=== PATIENT | male | born 1950 | race Caucasian/White ===

== ENCOUNTER → 2017-01-21 | Outpatient (CLI) | payer BC ==
[~2017-01-21] MED LIST: ACET-1222 PO; ALLO300T2 PO; ASPI81TA28 PO; ATOR-24 PO; CLOB-77 TOP; COEN30CA6 PO; CRS/10 PO; DXM/4 PO; FENO145T26 PO; GLIM4TAB2 PO; LANS30CA12 PO; LEVE250T PO; LISI10TA PO; METF1000 PO; ONDA8TAB6 PO; TEMO1CAP11 PO; TEMO1CAP4 PO; TEMO1CAP5 PO; TRAM-10 PO; WARF7.5T4 PO
[2017-01-21 11:42] LABS: INR 1.8 (0.9-1.1); PROTHROMBIN TIME (PATIENT) 19.7 SECONDS (9.0-12.0)
== END | disposition home or self-care (01) ==
LOC: C.LAB 09:57
PROVIDERS: ATTEND Family Medicine
DX: Z95.2 Presence of prosthetic heart valve (principal); Z79.01 Long term (current) use of anticoagulants; Z51.81 Encounter for therapeutic drug level monitoring

== ENCOUNTER → 2017-04-21 | Outpatient (CLI) | payer BC ==
[2017-04-21 14:19] VITALS: BP 118/73; PULSE 65; TEMP 37; O2SAT 94
--- NOTE | 2017-04-21 16:25 | Radiation Oncology Follow-Up ---
Radiation Oncology Follow-Up Date of Visit Apr 21, 2017. (Chiara Rayo PA-C) Reason For Visit One-month follow-up (Chiara Rayo PA-C) Radiation Completion Date 03/04/17 (Chiara Rayo PA-C) Diagnosis (1) Glioblastoma multiforme of brain Status: Acute Onset Date: 12/21/2016 Location: left temporal lobe Stage: IV Permanent Comment: Development of seizures and headache Respiratory failure requiring cricoidotomy Brain MRI revealing a lesion in the left temporal area Status post stereotactic needle biopsy 12/21/2016 revealing glioblastoma WHO grade 4, IGH 1(R123H) -wildtype Status post completion of combined radiation and chemotherapy 03/04/2017 received 6000 cGy Chemotherapy comprised of Temodar. Last Edited By: Chiara Rayo on March 15, 2017 14:12 (Chiara Rayo PA-C) History of Present Illness Mr. Santana is a 66-year-old Derian from [facility] who recently presented with a partial complex seizure and was brought to the emergency room on 2016 and he did have a CT head without contrast on 12/12/2016 which did not show any evidence of intracranial disease. The patient subsequently presented again with seizures and did have an MRI of the brain on December 2016 which revealed a small ring-enhancing lesion measuring 10 mm in the left temporal lobe. The patient was transferred to [facility]. The patient ultimately had a stereotactic biopsy on 12/21/2016 of the left temporal lesion which revealed glioblastoma, WHO grade 4 that was IDH-1 wildtype. The patient was seen in consultation by neuro-oncology, Dr. Burgess, and radiation oncology, Dr. Roper, and the recommendation was for definitive chemotherapy and radiation therapy with consideration for tumor treating michel. We are now being referred the patient for consideration of radiation therapy closer to his home. Status post completion of combined radiation and chemotherapy 03/04/2017. He received 6000 cGy. Chemotherapy comprised of Temodar. (Chiara Rayo PA-C) Interim History Over this past month he denies any problems with headaches or dizziness. He's had no change in his vision. He has had problems with feeling of hot and cold. Because of the feeling of warmth and associated fever he was seen by his primary care physician. Laboratory studies were obtained. He also had a chest x-ray. He was seen by the neuro-oncologist. Additional laboratory studies were done. He had been having episodes of an undetermined smell. Because of this his seizure medication was increased. His appetite is been good. His dexamethasone was increased due to the hot/cold flushes. This had been up to 2 mg this past Wednesday. He is back to tapering the medication. He is been given specific instructions for a slow taper. He is on 1 mg a day for the next week. This will then be 1/2 mg a day for one week. This is then decreased to one half a milligram every other day for a week. His stated that he'll have completed the taper by May 08. He has now started his first cycle of Temodar. The dose is 300 mg. He'll be taking this 5 days out of the month. He saw the neuro-oncologist this past weekend had an MRI. This read the diffusely infiltrative mass known glioblastoma and the left temporal lobe and posterior thalamus is stable compared to 12/16/2016. (Chiara Rayo PA-C) Allergies Coded Allergies: No Known Allergies (Unverified , 10/02/13) Home Medications Scheduled Allopurinol (Zyloprim), 300 MG PO DAILY Aspirin (Aspirin Ec), 81 MG PO DAILY Atorvastatin (Lipitor), 1 TAB PO DAILY Coenzyme Q10 (Ubidecarenone) (Coq10), 1 CAP PO BID Dexamethasone (Decadron), 1 MG PO DAILY Fenofibrate (Tricor), 145 MG PO DAILY Glimepiride (Glimepiride), 1 TAB PO DAILY Lansoprazole (Prevacid), 30 MG PO BID Levetiracetam (Keppra), 1,000 MG PO BID Lisinopril (Prinivil), 5 MG PO DAILY Metformin Hcl (Glucophage), 1,000 MG PO BID Rosuvastatin Calcium (Crestor), 20 MG PO HS Temozolomide (Temodar), 300 MG PO 5XWK Warfarin Sod (Jantoven), 7.5 MG PO DAILY Scheduled PRN Acetaminophen (Acetaminophen Extra Stren), 1 TAB PO TID PRN for Pain Clobetasol Propionate (Temovate), 1 APPLN TOP BID PRN for UNDECIDED Ondansetron Hcl (Zofran), 8 MG PO Q8 PRN for Nausea Tramadol (Ultram), 50 MG PO Q6H PRN for Pain Review of Systems Gastrointestinal: Symptoms: WNL Oral: Symptoms: No Problems Respiratory: Symptoms: WNL Other Respiratory: Gets "cold fits" and when he gets them he will get SOB lasts less than a mi Urinary: Symptoms: WNL Skin: Symptoms: No Problems (Chiara Rayo PA-C) Physical Exam Vital Signs Date Time Temp Pulse Resp B/P (MAP) Pulse Ox O2 Delivery O2 Flow Rate FiO2 04/21/17 14:19 37.0 65 16 118/73 94 Fatigue: None General Appearance: no apparent distress, + pertinent finding (well-healed incision of the left temporal area) Eyes: normal inspection, PERRL, EOMI ENT: normal ENT inspection, hearing grossly normal, pharynx normal Neck: no adenopathy, thyroid normal Respiratory/Chest: lungs clear, no respiratory distress, no accessory muscle use Cardiovascular: regular rate, rhythm, no gallop, no murmur Extremities: no pedal edema 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/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 tested, no motor/sensory deficits, alert, normal mood/affect Skin: warm/dry (Chiara Rayo PA-C) Laboratory Studies Test 02/17/17 14:29 02/24/17 13:24 03/01/17 14:22 Sodium Level 138 mmol/L (136-145) 137 mmol/L (136-145) Potassium Level 5.4 mmol/L (3.5-5.1) 5.2 mmol/L (3.5-5.1) Chloride Level 102 mmol/L (98-107) 103 mmol/L (98-107) Carbon Dioxide Level 28 mmol/L (21-32) 27 mmol/L (21-32) Anion Gap 8.0 mmol/L (3-11) 7.0 mmol/L (3-11) Blood Urea Nitrogen 29 mg/dl (7-18) 26 mg/dl (7-18) Creatinine 1.40 mg/dl (0.60-1.40) 1.20 mg/dl (0.60-1.40) Est Creatinine Clear Calc Drug Dose 55.2 ml/min 64.4 ml/min Estimated GFR () 60.7 73.1 Estimated GFR (Non- 52.4 63.1 BUN/Creatinine Ratio 20.6 (10-20) 22.0 (10-20) Random Glucose 206 mg/dl (70-99) 194 mg/dl (70-99) Calcium Level 9.5 mg/dl (8.5-10.1) 9.3 mg/dl (8.5-10.1) Total Bilirubin 0.4 mg/dl (0.2-1) 0.4 mg/dl (0.2-1) Aspartate Amino Transferase (AST) 17 U/L (15-37) 16 U/L (15-37) Alanine Aminotransferase (ALT) 44 U/L (12-78) 41 U/L (12-78) Alkaline Phosphatase 48 U/L (45-117) 39 U/L (45-117) Total Protein 7.2 gm/dl (6.4-8.2) 7.0 gm/dl (6.4-8.2) Albumin 3.9 gm/dl (3.4-5.0) 3.9 gm/dl (3.4-5.0) Globulin 3.3 gm/dl (2.5-4.0) 3.1 gm/dl (2.5-4.0) Albumin/Globulin Ratio 1.2 (0.9-2) 1.3 (0.9-2) White Blood Count 6.63 K/uL (4.8-10.8) 5.84 K/uL (4.8-10.8) Red Blood Count 4.73 M/uL (4.7-6.1) 4.63 M/uL (4.7-6.1) Hemoglobin 15.2 g/dL (14.0-18.0) 15.0 g/dL (14.0-18.0) Hematocrit 43.5 % (42-52) 42.7 % (42-52) Mean Corpuscular Volume 92.0 fL (80-100) 92.2 fL (80-100) Mean Corpuscular Hemoglobin 32.1 pg (25-34) 32.4 pg (25-34) Mean Corpuscular Hemoglobin Concent 34.9 g/dl (32-36) 35.1 g/dl (32-36) Platelet Count 126 K/uL (130-400) 117 K/uL (130-400) Mean Platelet Volume 8.5 fL (7.4-10.4) 8.0 fL (7.4-10.4) Neutrophils (%) (Auto) 78.3 % 74.4 % Lymphocytes (%) (Auto) 8.0 % 8.7 % Monocytes (%) (Auto) 10.0 % 12.0 % Eosinophils (%) (Auto) 0.3 % 0.3 % Basophils (%) (Auto) 0.2 % 0.3 % Neutrophils # (Auto) 5.20 K/uL (1.4-6.5) 4.34 K/uL (1.4-6.5) Lymphocytes # (Auto) 0.53 K/uL (1.2-3.4) 0.51 K/uL (1.2-3.4) Monocytes # (Auto) 0.66 K/uL (0.11-0.59) 0.70 K/uL (0.11-0.59) Eosinophils # (Auto) 0.02 K/uL (0-0.5) 0.02 K/uL (0-0.5) Basophils # (Auto) 0.01 K/uL (0-0.2) 0.02 K/uL (0-0.2) RDW Standard Deviation 51.8 fL (36.4-46.3) 53.0 fL (36.4-46.3) RDW Coefficient of Variation 15.3 % (11.5-14.5) 15.7 % (11.5-14.5) Immature Granulocyte % (Auto) 3.2 % 4.3 % Immature Granulocyte # (Auto) 0.21 K/uL (0.00-0.02) 0.25 K/uL (0.00-0.02) Prothrombin Time 31.5 SECONDS (9.0-12.0) 30.7 SECONDS (9.0-12.0) Prothrombin Time INR 2.8 (0.9-1.1) 2.8 (0.9-1.1) (Chiara Rayo PA-C) Assessment & Plan Plan: Patient was seen and examined by Dr. Hilliard. He'll continue on the dexamethasone taper. He is continuing on the Temodar. His next appointment for recheck visit and MRI in her she has 06/18/2017. We will obtain a copy of the recently performed MRI for review. We asked the patient to return to our office in 6 months. He may call if he has been questions or concerns in the interim. (Chiara Rayo PA-C) I agree with note created by Chiara Rayo PA-C. I reviewed the patient's chart and information with her. I have examined and evaluated the patient. I reviewed relevant clinical information and answered the patient's and/or family' s questions. (Veeral. Hilliard MD) Total Time In Follow-Up I spent 20 minutes speaking to the patient and performing examination. I spent 15 minutes reviewing information in completing this note. (Chiara Rayo PA-C) I spent 15 minutes examining and counseling the patient. (Veeral. Hilliard MD) Copy To Tyrel Encarnacion M.D.; Amira Bravo M.D.; Marko Roper M.D.
== END | disposition home or self-care (01) ==
LOC: C.ONC 14:09
PROVIDERS: ATTEND Physician Assistant Medical
DX: Z08 Encounter for follow-up examination after completed treatment for malignant neoplasm (principal); Z92.3 Personal history of irradiation; Z85.841 Personal history of malignant neoplasm of brain

== ENCOUNTER → 2017-10-26 | Outpatient (CLI) | payer BC ==
[~2017-10-26] MED LIST changes: +APRE125C; +APRE80CA; +GLC/500 PO; +LAMO1TAB21 PO; +ONDA-170 PO; -ONDA8TAB6 PO; +PRLSR20 PO; -TEMO1CAP11 PO; -TEMO1CAP5 PO; +WARF5TAB7 PO; +[UNRECOGNIZED DRUG - OTHER] PO
[2017-10-26 13:19] VITALS: BP 106/66; PULSE 76; TEMP 36.8; O2SAT 94
--- NOTE | 2017-10-26 15:58 | Radiation Oncology Follow-Up ---
Radiation Oncology Follow-Up Date of Visit Oct 26, 2017. Reason For Visit 6 month follow-up Radiation Completion Date 03/04/17 Diagnosis (1) Glioblastoma multiforme of brain Status: Acute Onset Date: 12/21/2016 Location: left frontal lobe Stage: IV Permanent Comment: Development of seizures and headache Respiratory failure requiring cricoidotomy Brain MRI revealing a lesion in the left temporal area Status post stereotactic needle biopsy 12/21/2016 revealing glioblastoma WHO grade 4, IGH 1(R123H) -wildtype Status post completion of combined radiation and chemotherapy 03/04/2017 received 6000 cGy Chemotherapy comprised of Temodar. Status post left frontal lobectomy due to recurrence 09/03/2017 Ongoing chemotherapy with Gliostine every 6 weeks Last Edited By: Chiara Rayo on Oct 26, 2017 15:46 History of Present Illness Mr. Santana is a 66-year-old Derian from [facility] who recently presented with a partial complex seizure and was brought to the emergency room on 2016 and he did have a CT head without contrast on 12/12/2016 which did not show any evidence of intracranial disease. The patient subsequently presented again with seizures and did have an MRI of the brain on December 2016 which revealed a small ring-enhancing lesion measuring 10 mm in the left temporal lobe. The patient was transferred to [facility]. The patient ultimately had a stereotactic biopsy on 12/21/2016 of the left temporal lesion which revealed glioblastoma, WHO grade 4 that was IDH-1 wildtype. The patient was seen in consultation by neuro-oncology, Dr. Burgess, and radiation oncology, Dr. Roper, and the recommendation was for definitive chemotherapy and radiation therapy with consideration for tumor treating michel. We are now being referred the patient for consideration of radiation therapy closer to his home. Status post completion of combined radiation and chemotherapy 03/04/2017. He received 6000 cGy. Chemotherapy comprised of Temodar. Interim History He was followed closely by the neuro-oncologist. Unfortunately on his recheck MRI 08/23/2017 there was a finding of recurrence. He then underwent a resection of the recurrent tumor of the left temporal lobe. Pathology revealed recurrent/residual we'll blastoma, WHO grade 4, reactive/degenerative changes. In the left amygdala and hip Reyes's there is recurrent/residual glioblastoma, WHO grade 4. Specimen [id number]. He was hospitalized for 4 days. He did well postoperatively he has had minimal headaches. He is on a steroid taper. He unfortunately fell. He had gone out to the mailbox. He was bending over picking up peace of would and lost his balance he fell forward and injured the scalp at the incision line. This is steadily healing. He does have fatigue. He is now started chemotherapy. It is an oral medication that is taken once every 6 weeks. He is tolerating this well. Allergies Coded Allergies: No Known Allergies (Unverified , 10/02/13) Home Medications Scheduled Allopurinol (Zyloprim), 300 MG PO DAILY Aprepitant (Emend), one hour before chem Aprepitant (Emend), day1,2after chemo Aspirin (Aspirin Ec), 81 MG PO DAILY Coenzyme Q10 (Ubidecarenone) (Coq10), 1 CAP PO DAILY Fenofibrate (Tricor), 145 MG PO DAILY Glimepiride (Glimepiride), 2 TAB PO AM Lamotrigine (Lamotrigine), 150 MG PO d Metformin Hcl (Glucophage), 500 MG PO BID Omeprazole (Prilosec), 20 MG PO DAILY Rosuvastatin Calcium (Crestor), 20 MG PO HS Warfarin Sod (Jantoven), 5 MG PO every other day Warfarin Sod (Jantoven), 7.5 MG PO every other day [gliostine], 200 MG PO q 6 weeks Scheduled PRN Acetaminophen (Acetaminophen Extra Stren), 1 TAB PO TID PRN for Pain Ondansetron Hcl (Zofran), 8 MG PO Q8 PRN for Nausea Review of Systems Gastrointestinal: Symptoms: WNL Oral: Symptoms: No Problems Respiratory: Symptoms: WNL Urinary: Symptoms: WNL Skin: Symptoms: No Problems Other Skin Symptoms: see comment section Physical Exam Vital Signs Date Time Temp Pulse Resp B/P (MAP) Pulse Ox O2 Delivery O2 Flow Rate FiO2 10/26/17 13:19 36.8 76 20 106/66 94 Fatigue: None General Appearance: no apparent distress Eyes: normal inspection, EOMI ENT: normal ENT inspection, hearing grossly normal Neck: no adenopathy, thyroid normal Respiratory/Chest: lungs clear, no respiratory distress, no accessory muscle use Cardiovascular: regular rate, rhythm, no gallop, no murmur Neurologic/Psychiatric: turner off II-XII nml as tested, no motor/sensory deficits, alert, normal mood/affect, + pertinent finding (he answers questions well but at times has difficulty with word finding.) Skin: warm/dry Pain Management Patient Reports Pain: Yes Pain Location: Neck Patient Preferred Pain Scale: 0 - 10 Pain Management Plan The patient describes the neck discomfort as a stiffness. They did not give her pain level. Patient does not require pain management. Pathology Pathology Results: were reviewed Pathology Comments Reviewed in the interim history. Imaging Imaging Studies: were reviewed Imaging Comments Discussed in the interim history. Assessment & Plan Plan: Patient was seen and examined by Dr. Hilliard. Continue regular follow-up with the neuro-oncologist and primary care physician. He is continuing on chemotherapy every 6 weeks. A follow-up appointment with our office was not given. He may call if he has the questions or concerns in be happy to see him. Assessment & Plan (Attending) ADDENDUM: I agree with note created by Chiara Rayo PA-C. I reviewed the patient's chart and information with her. I have examined and evaluated the patient. I reviewed relevant clinical information and answered the patient's and /or family's questions. 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 A separate 15 minutes reviewing information on completing this note. Total Time (Attending) In Follow-Up I spent 15 minutes examining and counseling the patient. COMMERCIAL OCEAN CLAMMER Copy To Tyrel Encarnacion M.D.; Amira Bravo M.D.; Marko Roper M.D.
== END | disposition home or self-care (01) ==
LOC: C.ONC 13:09
PROVIDERS: ATTEND Physician Assistant Medical
DX: Z08 Encounter for follow-up examination after completed treatment for malignant neoplasm (principal); Z92.3 Personal history of irradiation; Z85.841 Personal history of malignant neoplasm of brain

== ENCOUNTER → 2017-11-19 | Outpatient (CLI) | payer OTHER ==
[~2017-11-19] MED LIST changes: -ATOR-24 PO; -CLOB-77 TOP; -DXM/4 PO; -LANS30CA12 PO; -LEVE250T PO; -LISI10TA PO; -METF1000 PO; -ONDA-170 PO; +ONDA8TAB6 PO; -TEMO1CAP4 PO; -TRAM-10 PO
--- NOTE | 2017-11-19 12:23 | DIAGNOSTIC IMAGING REPORT ---
L PELVIS/UNILATERAL HIP 2-3VIEWS CLINICAL HISTORY: Left hip pain. Evaluate for metastatic disease versus insufficiency fracture. COMPARISON: CT of the chest abdomen and pelvis December 18, 2016. FINDINGS: Calcifications/oral contrast is noted within several colonic diverticula. The sacroiliac joints and symphysis pubis are intact. There is no acute fracture within the pelvis or hips. There is moderate osteoarthritis of the hips. IMPRESSION: 1. No acute fracture or osseous lesion identified by radiography. 2. Moderate osteoarthritis of the hips. Electronically signed by: Wilson Easton M.D. 11/19/2017 12:22 PM Dictated Date/Time: 11/19/2017 12:19 PM
--- NOTE | 2017-11-22 11:25 | CODING QUERY MEDICAL NECESSITY ---
: 1950 SUPPORTING DIAGNOSIS NEEDED A supporting diagnosis is required for the test/procedure performed on this patient in order for us to be reimbursed by the patient's insurance. Please provide a supporting diagnosis for the following test/procedure listed below next to the test name along with your signature. *If there is no additional diagnosis for this patient that would support the following test/procedure please document that below next to the test/procedure. Test(s)/Procedure(s) that require a supporting diagnosis: DOS: 11/19/17 * PELVIS/UNILATERAL HIP 2-3 VIEWS DIAGNOSIS: Provider Signature: Date: Thank you Erma Delgado Health Information Management Once completed, please kindly fax back to [phone] For questions please call [phone]
== END | disposition home or self-care (01) ==
LOC: C.RAD 11:36
PROVIDERS: ATTEND Registered Nurse
DX: M25.552 Pain in left hip (principal); M16.12 Unilateral primary osteoarthritis, left hip